=== PATIENT | male | born 1955 | race Caucasian/White ===

== ENCOUNTER 2022-11-03 09:05 | Outpatient (CLI) | payer MEDICARE | END 2022-11-03 09:06 | disposition home or self-care (01) | LOC: RAD-FRANK 09:05 | PROVIDERS: ATTEND Nurse Practitioner Family | DX: M54.2 Cervicalgia (principal); M47.812 Spondylosis without myelopathy or radiculopathy, cervical region | CPT/HCPCS: 72040 ==

== ENCOUNTER 2023-05-26 13:41 | Outpatient (CLI) | payer MEDICARE | END 2023-05-26 13:42 | disposition home or self-care (01) | LOC: BICCT 13:41 | PROVIDERS: ATTEND Surgery | DX: M43.17 Spondylolisthesis, lumbosacral region (principal); M47.817 Spondylosis without myelopathy or radiculopathy, lumbosacral region; M47.816 Spondylosis without myelopathy or radiculopathy, lumbar region | CPT/HCPCS: 72131 ==

== ENCOUNTER 2023-07-05 08:20 | Outpatient (CLI) | payer MEDICARE | END 2023-07-05 08:21 | disposition home or self-care (01) | LOC: RAD-FRANK 08:20 | PROVIDERS: ATTEND Nurse Practitioner Family | DX: M25.511 Pain in right shoulder (principal) ==

== ENCOUNTER 2023-09-15 12:28 | Outpatient (CLI) | payer MEDICARE | END 2023-09-15 12:29 | disposition home or self-care (01) | LOC: SCSMRI 12:28 | PROVIDERS: ATTEND Psychiatry & Neurology Neurology | DX: R29.818 Other symptoms and signs involving the nervous system (principal) | CPT/HCPCS: 70544; 70549; 70553 ==